=== PATIENT | male | born 1965 | race Caucasian/White ===

== ENCOUNTER 2024-07-25 07:23 | Inpatient (IN) ==
--- NOTE | 2024-06-19 13:45 | PAT Medication Instructions ---
Medication Instructions Date of Service June 19, 2024 Home Medications aspirin 81 mg capsule 81 mg PO DAILY atorvastatin 10 mg tablet 10 mg PO QAM lisinopril 2.5 mg tablet 2.5 mg PO QAM metformin 500 mg tablet 500 mg PO BID pregabalin 75 mg capsule (Lyrica) 75 mg PO BID ASK your prescriber and surgeon aspirin 81 mg capsule 81 mg PO DAILY DO NOT take the morning of surgery lisinopril 2.5 mg tablet 2.5 mg PO QAM metformin 500 mg tablet 500 mg PO BID Take morning of surgery With a small sip of water, OTHERWISE NOTHING TO EAT OR DRINK AFTER MIDNIGHT: atorvastatin 10 mg tablet 10 mg PO QAM pregabalin 75 mg capsule (Lyrica) 75 mg PO BID Take evening before surgery metformin 500 mg tablet 500 mg PO BID pregabalin 75 mg capsule (Lyrica) 75 mg PO BID Other Notes If you have any questions please call us at [phone] or [phone] or [phone] or [phone]
--- NOTE | 2024-07-01 12:52 | Anesthesiology Consultation ---
Date of Service July 01, 2024 Assessment & Plan (1) Encounter for pre-operative examination: - Check BSG DOS - Infectious disease screening: Per assessment on 07/01/24- No known recent infectious disease contacts or current infectious disease symptoms. - Hx of difficult intubation: [facility] Staff Anesthesiologist letter 09/21/2010: "I was the anesthesiologist responsible for the care of Jayme Membreno on 09-20-10. After induction of anesthesia, we were not able to intubate using direct laryngoscopy. An endotracheal tube was successfully placed using Glidescope technique. It is my recommendation that a fiberoptic intubation be considered at least as a backup on Mr. Membreno prior to any surgical procedure requiring general anesthesia." - Patient acceptable risk for surgery pending surgeon-ordered PCP preop evaluation ([facility], appt 07/07). Chart Review Chart Review: Patient seen in Pre Admission Testing Teaching & Discussion Pre-Anesthesia Teaching/Discussion Notes: Instructed NPO after midnight before surgery,except medications with 15 cc of water. Medication instructions provided according to the PAT guidelines. History Surgery Operation Date: 07/25/24 10:05 Proposed Procedures p L4-L5 Decompression and Fusion, Possible L3-L4 Decompression and Fusion, with Spinal Cord Monitoring - Gene Davis, Height/Weight Height: 5 ft 9 in Weight: 115.3 kg Allergies Allergy/AdvReac Type Severity Reaction Status Date / Time cortisone Allergy Unknown Swelling Verified 06/19/24 09:08 of Lip/Tongue/Throat Medications Home Medications Medication Instructions Recorded Confirmed Last Taken aspirin 81 mg capsule 81 mg PO DAILY 06/19/24 06/19/24 Unknown atorvastatin 10 mg tablet 10 mg PO QAM 06/19/24 06/19/24 Unknown lisinopril 2.5 mg tablet 2.5 mg PO QAM 06/19/24 06/19/24 Unknown metformin 500 mg tablet 500 mg PO BID 06/19/24 06/19/24 Unknown pregabalin 75 mg capsule (Lyrica) 75 mg PO BID 06/19/24 06/19/24 Unknown Past Medical History Medical History Diabetes Dyslipidemia HTN (hypertension) Lumbar pain Obesity Exercise / Class Metabolic Activity II 4-5 Yardwork/Stairs/Walk up hill Past Surgical History Surgical History History of anesthesia reaction "violent" after lumbar fusion History of difficult intubation [facility] Staff Anesthesiologist letter 09/21/2010: "I was the anesthesiologist responsible for the care of Jayme Membreno on 09-20-10. After induction of anesthesia, we were not able to intubate using direct laryngoscopy. An endotracheal tube was successfully placed using Glidescope technique. It is my recommendation that a fiberoptic intubation be considered at least as a backup on Mr. Membreno prior to any surgical procedure requiring general anesthesia." History of total left knee replacement (TKR) Hx of colonoscopy Hx of lumbosacral spine surgery (1998) L5, S1 fusion Hx of rotator cuff surgery R/L shoulder Past Anesthesia History Difficult Airway, No Family Hx of Anesthesia Complications and Other ("violent" after lumbar fusion ) History of PONV No Hx of PONV and No Hx of Motion Sickness Social History Smoking Status: Current every day smoker Smoking cigarettes per day: 1 PPD (at most) Do You Dip or Chew Tobacco: No Hx Alcohol Use: Yes alcohol intake frequency: a few times a month Hx Substance Use: No substance use type: does not use Review of Systems Patient denies chest pain, shortness of breath, dyspnea on exertion, fever, chills, cough, wheezing, palpitations. Physical Exam Vital Signs BP 126/92 P 72 TEMP 97.9 SP02 95%RA RESP 18 Physical Full cervical extension range of motion. Full TMJ range of motion. TMD 3 finger breaths Mallampati Score III Dentition: upper/lower full dentures Lungs: clear throughout to auscultation Cardiac: regular rate and rhythm, no murmurs noted Spine: normal Carotid arteries: negative bruit Extremities: no LE edema Thick, short neck Lab Results Anesthesia Preop Results Results Anesthesia Widget: WBC 11.33 K/ul (4.8-10.8) H 07/01/24 Hgb 17.6 g/dl (14.0-18.0) 07/01/24 Hct 51.1 % (42.0-52.0) 07/01/24 Plt 202 K/uL (130-400) 07/01/24 Na 138 mmol/L (136-145) 07/01/24 K 4.2 mmol/L (3.5-5.1) 07/01/24 Cl 103 mmol/L (98-107) 07/01/24 CO2 27 mmol/L (21-32) 07/01/24 BUN 15 mg/dl (6-23) 07/01/24 Creat 0.81 mg/dl (0.6-1.4) 07/01/24 Glucose Level 116 mg/dl (70-99(Fasting)) H 07/01/24 PT 10.4 Seconds (9.0-12.0) 07/01/24 PTT 27 Seconds (21-31) 07/01/24 INR 1.0 (0.9-1.1) 07/01/24 HA1c 6.9 % (4.5-5.6) H 07/01/24 Urine Color Yellow 07/01/24 Urine Appearance Clear (Clear) 07/01/24 Urine pH 6.5 (4.5-7.5) 07/01/24 Urine Specific [place] 1.013 (1.000-1.030) 07/01/24 Urine Protein Negative (Negative) 07/01/24 Urine Glucose (UA) Negative (Negative) 07/01/24 Urine Ketones Negative (Negative) 07/01/24 Urine Blood Negative (Negative) 07/01/24 Urine Nitrite Negative (Negative) 07/01/24 Urine Bilirubin Negative (Negative) 07/01/24 Urine Urobilinogen Negative (Negative) 07/01/24 Urine Leukocyte Esterase Trace (Negative) H 07/01/24 Urine WBC (Auto) 6-10 /hpf (0-5) H 07/01/24 Urine RBC (Auto) 3-5 /hpf (0-2) H 07/01/24 Urine Hyaline Casts (Auto) 0-2 /lpf (0-2) 07/01/24 Urine Epithelial Cells (Auto) 0-2 /hpf (0-2) 07/01/24 Urine Bacteria (Auto) None Seen (None Seen) 07/01/24 Blood Type O Positive 07/01/24 Antibody Screen NEGATIVE 07/01/24 Testing Electrocardiogram Date: 07/01/24 NSR at 68bpm. iRBBB. NS TWA anterolateral leads. Chest X-Ray Date: 07/01/24 FINDINGS: Heart size and pulmonary vasculature are normal. No effusion or consolidation. IMPRESSION: No acute findings.
[2024-07-25] MEDS: ACETAMINOPHEN 500 MG TAB PO SCH (08:19)
[2024-07-25] MEDS: CeleBREX 200 MG CAP PO SCH (08:19)
[2024-07-25] MEDS: GABAPENTIN 600 MG DOSE PO SCH (08:19)
[2024-07-25] MEDS: LR 60ML/HR IV SCH (08:19)
[2024-07-25] MEDS ORDERED: LIDOCAINE 2% 2 ML VIAL/AMP(20MG/ML) INFIL ONE (08:21)
[2024-07-25] MEDS ORDERED: ONDANSETRON INJ 2 MG/ML 2 ML VIAL ONE (08:21)
[2024-07-25] MEDS ORDERED: DEXAMETHASONE SOD INJ 4 MG/ML VIAL ONE (08:21)
[2024-07-25] MEDS ORDERED: fentaNYL citrate PF 100 MCG/2 ML VIAL ONE (08:22)
[2024-07-25] MEDS ORDERED: PROPOFOL IV EMULSION 10 MG/ML 20 ML VIAL IV ONE ×2 (08:22→11:29)
[2024-07-25] MEDS ORDERED: ROCURONIUM BROMIDE 10 MG/ML 5 ML VIAL IV ONE ×2 (08:22→10:14)
[2024-07-25] MEDS ORDERED: MIDAZOLAM HCL 1 MG/ML 2ML VIAL ONE (08:22)
[2024-07-25] MEDS: LR 15ML/HR IV SCH (08:45)
--- NOTE | 2024-07-25 09:05 | History & Physical Bridge Note ---
Date of Service July 25, 2024 History & Physical Bridge Note I have examined the patient, reviewed the History & Physical and in the interval since the performance of the History & Physical I have noted the following changes of clinical significance: no changes noted
--- NOTE | 2024-07-25 09:07 | History & Physical Report ---
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 Allergies Allergy/AdvReac Type Severity Reaction Status Date / Time cortisone Allergy Unknown Swelling Verified 07/25/24 08:05 of Lip/Tongue/Throat Home Medications Medication Instructions Recorded Confirmed Type aspirin 81 mg capsule 81 mg PO DAILY 06/19/24 07/25/24 History atorvastatin 10 mg tablet 10 mg PO QAM 06/19/24 07/25/24 History lisinopril 2.5 mg tablet 2.5 mg PO QAM 06/19/24 07/25/24 History metformin 500 mg tablet 500 mg PO BID 06/19/24 07/25/24 History pregabalin 75 mg capsule (Lyrica) 75 mg PO BID 06/19/24 07/25/24 History Past Med/Surg History Problem List (Updated 07/25/24 @ 09:06 by Gene Davis DO) Spondylosis of lumbosacral spine at single level with radiculopathy Encounter for pre-operative examination Medical History Diabetes Dyslipidemia HTN (hypertension) Lumbar pain Obesity Surgical History History of anesthesia reaction "violent" after lumbar fusion History of difficult intubation [facility] Staff Anesthesiologist letter 09/21/2010: "I was the anesthesiologist responsible for the care of Jayme Membreno on 09-20-10. After induction of anesthesia, we were not able to intubate using direct laryngoscopy. An endotracheal tube was successfully placed using Glidescope technique. It is my recommendation that a fiberoptic intubation be considered at least as a backup on Mr. Membreno prior to any surgical procedure requiring general anesthesia." History of total left knee replacement (TKR) Hx of colonoscopy Hx of lumbosacral spine surgery (1998) L5, S1 fusion Hx of rotator cuff surgery R/L shoulder Social History Smoking Status: Current every day smoker Tobacco Type: Cigarettes Cigarettes Per Day: 1 PPD (at most); Second Hand Exposure: No; Do You Dip or Chew Tobacco: No; Tobacco Cessation Education Requested by Patient: No Hx Alcohol Use: Yes Hx Substance Use: No Preferred Language: Romanian Communication Ability: Effective Hanger Required: No Beliefs That Will Affect Care: None Current Living Situation: Spouse Other Information That Helps Us Care for You: No Feels Safe at Home: Yes Safety Concerns: Feels Safe At This Time Assistive Devices: Denture - Upper, Denture - Lower and Glasses Physical Exam Physical Exam: Patient is alert and oriented Heart regular rhythm Lungs clear Results & Data Results & Data Vital Signs (Past 12 Hours) Vital Signs Temp Pulse Resp BP Pulse Ox O2 Del Method 07/25/24 08:00 36.7 C 75 20 148/83 H 95 Room Air
[2024-07-25] MEDS ORDERED: HYDROmorphone INJ 2 MG/ML SYR/VIAL IV PRN (09:32)
[2024-07-25] MEDS ORDERED: ePHEDrine sulfate 50 MG/ML AMP IV PRN (09:32)
[2024-07-25] MEDS ORDERED: ATROPINE SULFATE 0.1 MG/ML 10ML SYR IV PRN (09:32)
[2024-07-25] MEDS ORDERED: ONDANSETRON INJ 2 MG/ML 2 ML VIAL IV PRN ×2 (09:32→13:55)
[2024-07-25] MEDS ORDERED: PROMETHAZINE HCL 6.25 MG in SODIUM CHLORIDE 0.9% 50 ML IV PRN (09:32)
[2024-07-25] MEDS ORDERED: fentaNYL citrate PF 100 MCG/2 ML VIAL IV PRN (09:32)
[2024-07-25] MEDS: ceFAZolin 2000MG 2,000 MG/15 ML SYR IV SCH ×2 (09:49→18:31)
[2024-07-25] MEDS ORDERED: PHENYLEPHRINE 100MCG/ML 5ML SYR ONE (10:16)
[2024-07-25] MEDS ORDERED: KETAMINE HCL 10MG/ML SYR ONE (10:17)
[2024-07-25] MEDS ORDERED: PHENYLEPHRINE HCL 10 MG/ML VIAL ONE (10:23)
[2024-07-25] MEDS: ceFAZolin 330 MG/ML 1 GM VIAL ONE (10:38)
[2024-07-25] MEDS: BUPIVACAINE/EPINEPHRINE 0.25% 1:200,000 30 ML VIAL ONE (10:38)
[2024-07-25] MEDS ORDERED: GLYCOPYRROLATE 0.2 MG/ML VIAL ONE (11:21)
[2024-07-25] MEDS: FLOSEAL HEMOSTATIC MATRIX 10ML TOP ONE (11:26)
[2024-07-25] MEDS ORDERED: SUGAMMADEX SODIUM 200 MG/2 ML VIAL IV ONE (11:31)
[2024-07-25] MEDS ORDERED: HYDROmorphone INJ 2 MG/ML SYR/VIAL ONE (11:36)
--- NOTE | 2024-07-25 11:36 | Operative Report ---
Post Operative Report Pre & Post Diagnosis Operation Date: 07/25/24 09:05 Pre-Op Diagnosis: #1 lumbar spondylosis with radiculopathy. #2 lumbar spondylolisthesis L4-L5. Post-Op Diagnosis: Same I identified the patient and participated in the time-out.: Yes Procedure Operation Date: 07/25/24 09:05 Actual Procedures #1 lumbar decompression bilateral male facetectomies and foraminotomies L3-L4 L4-5. #2 posterior spinal fusion L4-5 #3 placement posterior instrumentation L4-5. Before interbody fusion L4-5 #5 placement Spira 14 x 26 mm x 2 at L4-5 #6 placement locally harvested morselized autograft and posterior gutters per #7 placement infuse collagen sponge combined with Koros in the posterior lateral gutters and os design bone graft in the interbody space. #8 application of versa wrap of the exposed dura. Surgeon Gene Davis, DO Firmware Engineer Angel Reed Estimated Blood Loss 100 Findings See Below The patient is 5 foot 9 weighing over 114 kg with a BMI in excess of 37. Patient's body obstruction can be due to significant technical difficulty with positioning versus exposure and the procedure itself at least 50% increased operative time. Specimens None Indications This is a 58-year-old male who presents above-mentioned diagnosis after failing stents course of nonoperative care is here for surgical invention. Description of Procedure Patient was met with identified informed consent obtained. Patient was then taken to the operative suite underwent intubation placed in a prone position on the Dae table atop the Jeronimo frame. All bony promises well-padded eyes inspected to ensure no external pressure placed upon them. This point lumbar spine is prepped and draped in sterile fashion. Sharp dissection with the assistance of Bovie cautery is performed down to and exposing the lamina transverse processes of L4-5. From a caudal cephalad fashion complete laminectomy of L4 was performed including bilateral medial facetectomies and foraminotomies addressing severe spinal stenosis. This was followed by partial laminectomy of L3 with bilateral medial facetectomies to address all subarticular stenosis. Pedicle screws were then placed at L4-5 bilaterally with the assistance of fluoroscopy in the process yary placed. By way of transforaminal approach on the left a discectomy was performed at L4-L5. Endplates guided to subcortical bleeding bone and a 14 x 26 mm spiral cage filled with os designed tapped in position. Then proceeded to the right transforaminal region at L4-5. Again discectomy performed endplates corrected to subcortical bleeding bone and a second 14 x 26 mm Spira cage filled with os designed tapped in position. The rods were then compressed locked into final position bilaterally. The transverse processes of L4-5 burred to subcortical bleeding bone. Infuse collagen sponge combined with Koros and local autograft placed in the posterior lateral gutters. Versa wrap placed over the exposed dura. 15 round JUAN drain inserted. The incision was then closed with 1 Vicryl the fascia 2-0 Vicryl subcutaneously and 4 Monocryl for final skin closure. Steri-Strips and sterile dressing placed. Patient waken taken PACU stable condition. Please note spinal cord monitoring was utilized at the procedure no changes noted. Lastly Angel Reed was present at the entire surgery involved the patient positioning complex portion of the surgery and final skin closure. I attest to the content of the Intraoperative Record and any orders documented therein. Any exceptions are noted below.
--- NOTE | 2024-07-25 11:44 | Fluoroscopy Report ---
FL lumbar spine 2-3V CLINICAL HISTORY: L4-L5 DECOMPRESSION AND FUSION POSSIBLE L3-L4 COMPARISON STUDY: None FLUOROSCOPY TIME: 18 seconds FLUOROSCOPY IMAGES: 2 EXPOSURE DOSE: 14.07 mGy FINDINGS: Fluoroscopic guidance was provided for a lumbar fusion with pedicle screws and intervertebr al body spacer. Images are refer to the operated for evaluation based upon the fluoroscopic observati on. IMPRESSION: As above ACT 112: Negative or not required by law. Electronically signed by: Paulette Morrow M.D. 07/25/2024 11:43 AM
--- NOTE | 2024-07-25 13:40 | Anesthesiology Progress Note ---
Date of Service July 25, 2024 Anesthesia Post Procedure Vital Signs Vital Signs: Temp Pulse Pulse Resp BP Pulse Ox O2 Del Method 07/25/24 13:15 80 17 146/83 H 94 Nasal Cannula 07/25/24 13:05 36.9 C 81 12 137/83 95 Nasal Cannula 07/25/24 12:55 80 12 130/82 92 Oxymask 07/25/24 12:45 77 7 L 130/82 95 Oxymask 07/25/24 12:35 86 14 140/78 95 Oxymask 07/25/24 12:25 80 13 140/96 94 Oxymask 07/25/24 12:15 83 16 140/70 94 Oxymask 07/25/24 12:08 37.1 C 83 15 132/73 96 Oxymask 07/25/24 08:00 36.7 C 75 20 148/83 H 95 Room Air O2 Flow Rate 07/25/24 13:15 2 07/25/24 13:05 2 07/25/24 12:55 3 07/25/24 12:45 5 07/25/24 12:35 5 07/25/24 12:25 5 07/25/24 12:15 5 07/25/24 12:08 5 07/25/24 08:00 Pain Intensity Bilateral Back: Pain Intensity: 4 Transfer of Care Handoff Completed per policy Notes Mental Status: alert / awake / arousable and participated in evaluation Patient Amnestic to Procedure: Yes Nausea / Vomiting: adequately controlled Pain: adequately controlled Airway Patency, RR, SpO2: stable & adequate BP & HR: stable & adequate Hydration State: stable & adequate Anesthetic Complications: no major complications apparent
[2024-07-25] MEDS ORDERED: ALUMINUM/MAGNESIUM SUSP 30 ML UDC PO PRN (13:55)
[2024-07-25] MEDS ORDERED: ONDANSETRON 4 MG OD TAB PO PRN (13:55)
[2024-07-25] MEDS ORDERED: LORazepam 2 MG/1 ML VIAL IV PRN (13:55)
[2024-07-25] MEDS ORDERED: hydrOXYzine HCl 25 MG TAB PO PRN (13:55)
[2024-07-25] MEDS ORDERED: HYDROmorphone INJ 0.5 MG/0.5 ML SYR IV PRN (13:55)
[2024-07-25] MEDS ORDERED: HYDROmorphone INJ 1 MG/ML SYRINGE IV PRN (13:55)
[2024-07-25] MEDS ORDERED: ACETAMINOPHEN 1,000 MG/100 ML VIAL IV PRN (13:55)
[2024-07-25] MEDS ORDERED: FAMOTIDINE 20 MG TAB PO PRN (13:55)
[2024-07-25] MEDS ORDERED: PROMETHAZINE 12.5 MG/50.5 ML BAG IV PRN (13:55)
[2024-07-25] MEDS ORDERED: diphenhydrAMINE Capsule 25 MG CAP PO PRN (13:55)
[2024-07-25] MEDS ORDERED: DO NOT ADMINISTER PNEUMOCOCCAL VACCINE PRN (13:55)
[2024-07-25] MEDS ORDERED: PHARMACY GLYCEMIC MGMT CONSULT PRN (13:55)
[2024-07-25] MEDS ORDERED: METOCLOPRAMIDE HCL INJ 5 MG/ML 2 ML VIAL IV PRN (13:55)
[2024-07-25] MEDS ORDERED: ALBUTEROL HFA 8 GM INHALER INH ONE (13:55)
[2024-07-25] MEDS ORDERED: NALOXONE HCL 0.4 MG/1 ML VIAL/CARP IV PRN (13:55)
[2024-07-25] MEDS ORDERED: SOD PHOSPHATE/SOD BIPHOSPHATE ENEMA 132 ML BTL PR PRN (13:55)
[2024-07-25] MEDS ORDERED: bisacodyL 10 MG SUPP PR PRN (13:55)
[2024-07-25] MEDS ORDERED: LORazepam 0.5 MG TAB PO PRN (13:55)
[2024-07-25] MEDS ORDERED: DO NOT ADMINISTER FLU VACCINE PRN (13:55)
[2024-07-25] MEDS ORDERED: MAGNESIUM HYDROXIDE SUSP 30 ML UDC PO PRN (13:55)
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
[2024-07-25] MEDS ORDERED: GLUCOSE 40% GEL 15 GM TUBE PO PRN (15:15)
[2024-07-25] MEDS ORDERED: GLUCOSE 10 TAB/TUBE PO PRN (15:15)
[2024-07-25] MEDS ORDERED: CARBOHYDRATES FOR HYPOGLYCEMIA PO PRN (15:15)
[2024-07-25] MEDS ORDERED: DEXTROSE 50% 50 ML SYRINGE IV PRN (15:15)
[2024-07-25] MEDS ORDERED: GLUCAGON FOR INJ 1 MG VIAL SQ PRN (15:15)
--- NOTE | 2024-07-25 15:24 | Pharmacy Report ---
Pharmacy Glycemic Short Note 2 - Date of Service July 25, 2024 - Glycemic Short BSG Results (Last 24 hours): 07/25/24 07/25/24 07:59 12:24 POC Glucose 191 H 187 H OUTPATIENT ANTIDIABETIC REGIMEN: * metformin 500 mg PO BID * A1c = 6.9% (07/01/24) ASSESSMENT: * Jayme is a 58 yo T2DM s/p L4-L5 decompression and fusion. * Patient was given dexamethasone IV preop and is ordered daily dexamethasone 6 mg IV post-op. Anticipate steroid induced hyperglycemia. * Will initiate weight based basal + bolus insulin. * Given fasting BSG of 191 mg/dL and steroids will order a one time dose of Lantus to be given with dinner for BSG 180 mg/dL or greater. Further basal to be determined on 07/26. * Novolog based on weight and stress 2 (closer to stress of 3 based on adjusted body weight) PLAN FOR INPATIENT GLYCEMIC CONTROL: * Hold outpatient oral diabetes medications * Basal insulin * Lantus 0-15 units SQ with dinner x 1 * Bolus insulin * NovoLog per scale ACHS or Q6hrs while NPO * Goal Range: Low 110 mg/dL - High 140 mg/dL * Correction Factor: 20 mg/dL/unit * Nutritional / Prandial insulin per carb ratio of 1 unit per 7 grams CHO consumed
[2024-07-25] MEDS: oxyCODONE HCL IR 5 MG TAB (IMMEDIATE RELEASE) PO PRN (15:46)
[2024-07-25] MEDS ORDERED: INSULIN ASPART PER UNIT CHARGE SC SCH (16:30)
[2024-07-25] MEDS: INSULIN ASPART PER UNIT CHARGE SC SCH (16:54)
[2024-07-25] MEDS: LANTUS PER UNIT CHARGE SC SCH (16:54)
[2024-07-25] MEDS: KETOROLAC 30 MG/ML VIAL IV PRN (18:45)
[2024-07-25] MEDS: PREGABALIN 75 MG CAP PO SCH (21:19)
[2024-07-25] MEDS: DOCUSATE SODIUM/SENNA 50/8.6MG TAB PO SCH (21:19)
[2024-07-25] MEDS: ACETAMINOPHEN 500 MG TAB PO PRN (21:27)
[2024-07-25] MEDS: traMADol HCL 50 MG TABLET PO PRN (21:27)
[2024-07-26] MEDS: INSULIN ASPART PER UNIT CHARGE SC SCH (00:40)
[2024-07-26] MEDS: POLYETHYLENE (MIRALAX) 17 GM PACK PO SCH (06:14)
[2024-07-26 06:58] LABS: Basophils # (auto) 0.03 K/uL (0.00-0.20); Basophils % (auto) 0.2 %; Eosinophils # (auto) 0.04 K/uL (0.00-0.50); Eosinophils % (auto) 0.2 %; Hematocrit (blood only) 43.1 % (42.0-52.0); Hemoglobin 14.8 g/dl (14.0-18.0); Immature Granulocytes # (auto) 0.14 K/uL (0.01-0.20); Immature Granulocytes % (auto) 0.8 %; Lymphocytes # (auto) 1.95 K/uL (1.20-3.40); Lymphocytes % (auto) 11.1 %; Mean Corpuscular Hemoglobin 30.6 pg (25.0-34.0); Mean Corpuscular Hgb Conc 34.3 g/dL (32.0-36.0); Mean Corpuscular Volume 89.2 fL (80.0-100.0); Mean Platelet Volume 9.4 fL (9.4-12.4); Monocytes # (auto) 1.86 K/uL (0.11-0.59); Monocytes % (auto) 10.6 %; Neutrophils # (auto) 13.57 K/uL (1.40-6.50); Neutrophils % (auto) 77.1 %; Platelet Count 194 K/uL (130-400); RDW Coefficient of Variation 12.7 % (11.5-14.5); RDW Standard Deviation 41.8 fL (36.4-46.3); Red Blood Count 4.83 M/uL (4.70-6.10); White Blood Count 17.59 K/ul (4.8-10.8)
[2024-07-26 07:13] LABS: BUN Creatinine Ratio 25.5 (10-20); Calcium 9.1 mg/dl (8.6-10.3); Creatinine Clr Calc Pharmacy 101.3 ml/min; Potassium 4.9 mmol/L (3.5-5.1)
[2024-07-26] MEDS: ASPIRIN 81 MG ECTAB PO SCH (08:07)
[2024-07-26] MEDS: ATORVASTATIN 10 MG TAB PO SCH (08:07)
[2024-07-26] MEDS: dexAMETHasone 6 MG in SYRINGE 0 ML IV SCH (08:07)
[2024-07-26] MEDS: lisinopril 2.5 MG TAB PO SCH (08:07)
[2024-07-26] MEDS: LANTUS PER UNIT CHARGE SC SCH (08:14)
--- NOTE | 2024-07-26 08:37 | Orthopedic Progress Note ---
Date of Service July 26, 2024 Assessment & Plan (1) Spondylosis of lumbosacral spine at single level with radiculopathy: Plan: At this time we will continue physical therapy monitor his JUAN output anticipate discharge home in the next few days. Admission and Anticipated Discharge Date Admission Date: July 25, 2024 Subjective Back pain controlled leg pain improved Physical Exam Physical Exam: Patient is in the chair at the bedside. Is comfortable. Good strength testing. Results & Data Vital Signs (Past 12 Hours) Vital Signs Temp Pulse Resp BP Pulse Ox O2 Del Method 07/26/24 07:00 36.7 C 70 18 128/79 94 Room Air 07/26/24 03:24 36.6 C 69 14 143/90 H 93 Room Air 07/25/24 23:24 36.6 C 68 14 141/68 H 95 Room Air 07/25/24 22:10 Room Air Queries Orthopedic Spine Obesity: Yes
--- NOTE | 2024-07-26 14:26 | Pharmacy Report ---
Pharmacy Glycemic Short Note 2 - Date of Service July 26, 2024 - Glycemic Short BSG Results (Last 24 hours): 07/25/24 07/25/24 07/26/24 16:28 20:29 00:07 Glucose POC Glucose 218 H 253 H 207 H 07/26/24 07/26/24 07/26/24 03:37 06:08 07:19 Glucose 145 H POC Glucose 186 H 173 H 07/26/24 11:08 Glucose POC Glucose 267 H OUTPATIENT ANTIDIABETIC REGIMEN: * Metformin 500 mg PO BID * A1c = 6.9% (07/01/24) ASSESSMENT: 07/26: * Mr. Membreno received 39 units of insulin yesterday, 15 of which were basal. BSGs were [phone] mg/dL. * Fasting BSG was 173 mg/dL this AM. Improved but still above goal so will increase basal today. * Remains on Dexamethasone 6 mg IV once daily. Tightened Novolog to weight/stress of 3 given steroids. POD#1 and tolerating T2DM diet. 07/25: * Jayme is a 58 yo T2DM s/p L4-L5 decompression and fusion. * Patient was given dexamethasone IV preop and is ordered daily dexamethasone 6 mg IV post-op. Anticipate steroid induced hyperglycemia. * Will initiate weight based basal + bolus insulin. * Given fasting BSG of 191 mg/dL and steroids will order a one time dose of Lantus to be given with dinner for BSG 180 mg/dL or greater. Further basal to be determined on 07/26. * Novolog based on weight and stress 2 (closer to stress of 3 based on adjusted body weight) PLAN FOR INPATIENT GLYCEMIC CONTROL: * Hold outpatient oral diabetes medications * Basal insulin * Lantus 20 units SC daily * Bolus insulin * NovoLog per scale ACHS or Q6hrs while NPO * Goal Range: Low 110 mg/dL - High 140 mg/dL * Correction Factor: 15 mg/dL/unit * Nutritional / Prandial insulin per carb ratio of 1 unit per 5 grams CHO consumed
--- NOTE | 2024-07-26 14:52 | Hospitalist Progress Note ---
Date of Service July 26, 2024 Assessment & Plan (1) Spondylosis of lumbosacral spine at single level with radiculopathy: Plan: - POD #1 - Pain management, bowel regimen and DVT ppx per the primary team - PT/OT consults, pt is planning on outpatient therapy (2) Diabetes: Plan: - ISS with Accu-Cheks ACHS, last A1c was 6.9 on 07/01 (3) HTN (hypertension): Plan: -Continue baby aspirin, lisinopril as per home med rec (4) Tobacco use: Plan: -Cessation encouraged, Smokes 1 ppd, no nicotine patch at this time s/p spinal fusion. (5) Dyslipidemia: Plan: -Continue atorvastatin Plan I spent a total of 30 minutes in direct patient care, including coue-ya-khyi time with the patient and/or family, reviewing medical records, ordering and re viewing diagnostic tests, and coordinating care with other healthcare providers. This time includes: history taking, physical examination, medical decision making, counseling, ECG interpretation, imaging interpretation, lab interpretation, orders, and education, excluding time spent in the performance of separately billed services. Admission and Anticipated Discharge Date Admission Date: July 25, 2024 Subjective patient seen and examined at bedside. Family was present as well for conversation. Patient is doing well today. Feels pain is well-controlled. Review of Systems Review of Systems: Constitutional: No fever, sweats or chills Eyes: No diplopia, no worsening or blurred vision ENT: normal hearing, no trouble swallowing Respiratory: No cough, sputum, dyspnea at rest or on exertion Cardiovascular: No chest pain, tightness or palpitations Abdomen: No pain, nausea, vomiting, diarrhea or constipation Musculoskeletal: No joint pain, calf pain, swelling, slight pain in lower back post surgical Neurologic: No weakness, numbness/tingling, or balance problems Psychiatric: No anxiety or depression Skin: No rash or itch Physical Exam Physical Exam: Gen: A&O 3 NAD HEENT: NCAT, EOMI, not icteric. External ears normal. No rhinorrhea. Moist mucous membranes. Neck: Supple, full range of motion, no observable masses, No meningeal sign. Lungs: No Respiratory distress. CV: RRR, no edema. Abdomen: Soft, nondistended, No rebound tenderness. MSK: No joint swelling, no redness. noted post procedure dressings, minimal blood on dressings, minimal tenderness noted Skin: No rashes, petechiae, lesions. Normal color per patient. Neuro: Normal Gait, Grossly intact. Psych: Appropriate for situation. Results & Data Results & Data Vital Signs (Past 12 Hours) Vital Signs Temp Pulse Resp BP Pulse Ox O2 Del Method 07/26/24 07:00 36.7 C 70 18 128/79 94 Room Air 07/26/24 03:24 36.6 C 69 14 143/90 H 93 Room Air Laboratory Results - Personally interpreted, no evidence of acute blood loss or worsening creatinine at this time
[2024-07-27 06:04] LABS: Hematocrit (blood only) 45.5 % (42.0-52.0); Hemoglobin 15.1 g/dl (14.0-18.0); Mean Corpuscular Hemoglobin 30.4 pg (25.0-34.0); Mean Corpuscular Hgb Conc 33.2 g/dL (32.0-36.0); Mean Corpuscular Volume 91.5 fL (80.0-100.0); Mean Platelet Volume 9.6 fL (9.4-12.4); Platelet Count 206 K/uL (130-400); RDW Standard Deviation 43.8 fL (36.4-46.3); Red Blood Count 4.97 M/uL (4.70-6.10); White Blood Count 16.12 K/ul (4.8-10.8)
[2024-07-27 06:16] LABS: BUN Creatinine Ratio 25.6 (10-20); Calcium 9.6 mg/dl (8.6-10.3); Creatinine Clr Calc Pharmacy 115.5 ml/min; Potassium 4.7 mmol/L (3.5-5.1)
[2024-07-27] MEDS: LANTUS PER UNIT CHARGE SC SCH (08:35)
[2024-07-27 09:06] VITALS: O2SAT 95
--- NOTE | 2024-07-27 11:21 | Discharge Summary ---
Date of Service July 27, 2024 Admission HPI Per Admitting Provider this is a 58-year-old this 58-year-old male presents chronic system back and leg pain and failing course of nonoperative care is here for surgical invention. 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 Postop he progressed appropriately. Marked improvement of his leg symptoms. He is ambulating the halls without difficulty. Extra-strength testing. JUAN drain decreasing. Pain well-controlled. Subsidy discharged home. Discharge orders instructions from the chart for further review. Total Time Total Time Spent Total Time Spent (In Minutes): 20 minutes Discharge Plan Discharge Items Patient Disposition: Home - Self-Care Reason For Visit: Degenerative Lumbar Spinal Stenosis, Lumbar Disc D Discharge Diagnosis: lumbar spondylosis with radiculopathy Activity: As commented below Non-emergency contact: Primary Care Provider Call non-emergency contact if: you have any medication questions Follow-up/Referrals: Amaury Centeno M.D. [Primary Care Provider] - Diet: Regular Addtl Attending Provider Instructions: ACTIVITY RECOMMENDATIONS: SELF CARE INSTRUCTIONS AFTER THORACIC/LUMBAR FUSIONS 1. You may walk to your tolerance. It is good exercise for your legs and back. Expect some back and intermittent leg aches and pains. 2. You may perform "counter-top" level activities (make a sandwich, radha with a project, etc.). 3. No bending or lifting of more than 10 pounds or back twisting of any nature (roll like a log when turning in bed). 4. You may ride in a car for 20-30 minutes at a time. No driving until after your first visit with your doctor. 5. Frequent changes of position and restricting sitting to 30 minutes at a time will help limit the amount of back spasms and stiffness you may experience. 6. You may discontinue the use of ambulatory aids (cane, crutches, etc.) once your strength and confidence allow. 7. You may statistical financial analyst the shower and let water strike your incision when you arrive home at least once daily. Do not take a tub bath, sit in a hot tub or go into a swimming pool until after your first recheck in the office. 8. You may resume previous diet. SPECIAL CARE INSTRUCTIONS: VERY IMPORTANT TO READ AND REVIEW A. Your surgical incision has been closed with a cosmetic suture under the skin that will dissolve in about 6 weeks. In 14 days, you can use a pair of clean scissors and cut the suture that is left outside of the skin at the ends of your incision. 1. The small skin tapes can be removed 7 days after surgery if they have not fallen off by that point. 2. You may keep the wound open to air as much as possible to promote healing after post-op day number 5 unless told otherwise by your doctor. 3. If you think the wound looks like it is becoming infected (redness or worsening drainage) and/or you are experiencing fever, chill or worsening back pain and muscle spasms, contact the office so that we may evaluate you as soon as possible. B. Complications are uncommon, but please contact us if you have any signs or symptoms of: 1. wound infection (fever higher than 102.5 degrees F, redness, separation of wound, drainage, or increasing pain from the incision) 2. blood clots in legs (pain, swelling, redness and warmth in legs) 3. urinary tract infection (fever higher than 102.5 degrees F, burning upon urination or increased frequency of urination) 4. nerve problems (inability to walk on your toes or heels, numbness, loss of bowel or bladder control) 5. any other symptoms that concern you C. Please call the office at if you have any concerns or questions about your operation or recovery. D. No smoking! Smoking drastically decreases the chance of a solid fusion. E. Do not take any anti-inflammatory medications (Indocin, Advil, Motrin, Aspirin, Naprosyn, etc.) as these may inhibit the chance of a solid fusion. Tylenol is okay to take for pain. MANAGING PAIN AFTER SPINAL SURGERY 1. Narcotic medication is intended for short-term use and will be provided for surgical pain. Surgical pain usually lasts for a period of 4-6 weeks. Narcotic medication includes Percocet, Vicodin, Darvocet, Tylenol #3 or Lortab. 2. Longer-term pain is more appropriately treated with non-narcotic medication such as Tylenol ES. 3. Muscle spasm is not appropriately treated with narcotics. Muscle relaxers such as Soma, Flexeril or Skelaxin can be used along with Tylenol ES. 4. Remember that we all live with some "aches and pains". This is not unusual or uncommon after an injury or as we get older. a. Back pain is expected and may include muscle spasms for 4 to 6 weeks after surgery. The pain should gradually improve. If the pain worsens for no apparent reason, please contact the office. b. Intermittent leg pain may also be experienced and should not be concerned about unless it worsens for no apparent reason. If so, please contact the office. 5. We will provide appropriate medication within the normal guidelines of their prescribed use. We will also be very cautious and aware of potential abuse and extended duration of patients' medication needs. a. Pain medications are for your comfort and to assist with sleep and rest so that the tissue can heal. They are not provided in order to return to normal activity and should not be used through the day. To do so or worsening pain at night can result from ongoing tissue damage and development of tolerance to the prescribed medicine. 6. Please allow 2-3 days to process refills. Prescriptions will not be mailed but must be picked up at the office. FOLLOW UP VISIT: Keep your scheduled follow-up appointment. Any questions, please call the office at . Pending Studies at Discharge: No Stand-Alone Forms: [facility], Pain - Opioid Pain Management, Smoking Cessation Medications and DC Order Prescriptions: New tramadol 50 mg tablet 50 mg PO Q6H PRN (Reason: pain, moderate) Qty: 30 0RF oxycodone 5 mg tablet 5 mg PO Q6H PRN (Reason: pain) Qty: 30 0RF Continued metformin 500 mg Tablet 500 mg PO BID atorvastatin 10 mg Tablet 10 mg PO QAM lisinopril 2.5 mg Tablet 2.5 mg PO QAM pregabalin [Lyrica] 75 mg Capsule 75 mg PO BID aspirin 81 mg Capsule 81 mg PO DAILY Discharge Orders: Discharge Order (Routine); Ordered 07/27/24 Ordered By: Gene Knight/Other Patient Handouts: DVT Post Op Prevention Admission Data Admit Date/Time: 07/25/24 11:39 Attending Provider: Gene Davis Admit Provider: Gene Davis Primary Care Provider: Amaury Centeno Other Providers: Pam Benavidez
[2024-07-27 12:21] VITALS: BP 133/80; PULSE 55; RESP 17; TEMP 97.5
--- NOTE | 2024-07-27 13:37 | Hospitalist Progress Note ---
Date of Service July 27, 2024 Assessment & Plan (1) Spondylosis of lumbosacral spine at single level with radiculopathy: Plan: - POD #1 - Pain management, bowel regimen and DVT ppx per the primary team - PT/OT consults, pt is planning on outpatient therapy (2) Diabetes: Plan: - ISS with Accu-Cheks ACHS, last A1c was 6.9 on 07/01 (3) HTN (hypertension): Plan: -Continue baby aspirin, lisinopril as per home med rec (4) Tobacco use: Plan: -Cessation encouraged, Smokes 1 ppd, no nicotine patch at this time s/p spinal fusion. (5) Dyslipidemia: Plan: -Continue atorvastatin Plan I spent a total of 25 minutes in direct patient care, including uacz-[id number] time with the patient and/or family, reviewing medical records, ordering and re viewing diagnostic tests, and coordinating care with other healthcare providers. This time includes: history taking, physical examination, medical decision making, counseling, ECG interpretation, imaging interpretation, lab interpretation, orders, and education, excluding time spent in the performance of separately billed services. Admission and Anticipated Discharge Date Admission Date: July 25, 2024 Subjective Patient seen and examined at bedside. Patient is doing well today, pain well controlled, and would like to go home. Review of Systems Review of Systems: Constitutional: No fever, sweats or chills Eyes: No diplopia, no worsening or blurred vision ENT: normal hearing, no trouble swallowing Respiratory: No cough, sputum, dyspnea at rest or on exertion Cardiovascular: No chest pain, tightness or palpitations Abdomen: No pain, nausea, vomiting, diarrhea or constipation Musculoskeletal: No joint pain, calf pain, swelling, slight pain in lower back post surgical Neurologic: No weakness, numbness/tingling, or balance problems Psychiatric: No anxiety or depression Skin: No rash or itch Physical Exam Physical Exam: Gen: A&O 3 NAD HEENT: NCAT, EOMI, not icteric. External ears normal. No rhinorrhea. Moist mucous membranes. Neck: Supple, full range of motion, no observable masses, No meningeal sign. Lungs: No Respiratory distress. CV: RRR, no edema. Abdomen: Soft, nondistended, No rebound tenderness. MSK: No joint swelling, no redness. Skin: No rashes, petechiae, lesions. Normal color per patient. Neuro: Normal Gait, Grossly intact. Psych: Appropriate for situation. Results & Data Results & Data Vital Signs (Past 12 Hours) Vital Signs Temp Pulse Pulse Resp BP BP Pulse Ox 07/27/24 12:17 36.4 C L 55 L 17 133/80 95 07/27/24 11:18 36.9 C 62 72 16 125/74 144/79 H 95 07/27/24 09:02 36.9 C 62 16 125/74 95 O2 Del Method 07/27/24 12:17 Room Air 07/27/24 11:18 07/27/24 09:02 Room Air Laboratory Results -personally reviewed, stable creatinine and Hgb (2) Diabetes Diabetes mellitus type: type 2 Diabetes mellitus group home insulin use: without group home use Diabetes mellitus complication status: without complication Qualified Code(s): E11.9 - Type 2 diabetes mellitus without complications (3) HTN (hypertension) Hypertension type: primary hypertension Qualified Code(s): I10 - Essential (primary) hypertension
--- NOTE | 2024-07-28 12:11 | Coding Query ---
CODING QUERY To promote full compliance with coding requirements relating to patient care, provider participation is requested in all cases of senior speech pathologist uncertainty. Please assist us with the question(s) below: Coding Question(s): Throughout multiple reports LumboSacral Spondylosis is listed at the primary dx. D/C Summary lists Lumbosacral in several places, but also Lumbar in several places. Please clarify if this is Lumbosacral or Lumbar Spondylosis. Physician's Response(s): To clarify this is lumbar spondylosis with radiculopathy Thank you Chelo Asher Principal Diagnosis: "that condition established after study, to be chiefly responsible for occasioning the admission of the patient to the hospital for care." Co-Existing Principal Diagnosis: "when two or more diagnoses equally meet the criteria for principal diagnosis as determined by the circumstances of admission, diagnostic work up, and/or therapy provided, and the Alphabetic Index, Tabular List, or another coding guideline does not provide sequencing direction, any one of the diagnoses may be sequenced first." "When the physician has documented what appears to be a current diagnosis in the body of the record, but has not included the diagnosis in the final diagnostic statement, the physician should be asked whether the diagnosis should be added." (Source [facility] 2 QTR90. p3-4) SUDARSHAN
== END 2024-07-27 12:06 | disposition home or self-care (01) | DRG 402 ==
LOC: ASU 07:23 → 3E 11:39